=== PATIENT | male | born 1975 | race Caucasian/White ===

== ENCOUNTER 2018-03-24 17:15 | Emergency (ER) | payer MEDICAID, OTHER ==
[~2018-03-24] VITALS: Ht 180.3 cm; Wt 111.1 kg
--- NOTE | 2018-03-24 17:15 | NUR ---
Patient is alert, requesting for juice and sandwich immediately from the ER staff, respiration is easy, poor hygiene noted with strong body scent/odor, calm & cooperative@the moment, pending MD evaluation
--- NOTE | 2018-03-24 17:27 | NUR ---
[employer] officers x2 are at bedside.
[2018-03-24 17:34] LABS: BASOPHILS # (AUTO) 0.1 K/uL (0.0-8.0); BASOPHILS % (AUTO) 0.6 % (0.0-2.0); EOSINOPHILS # (AUTO) 0.3 K/uL (0.0-0.7); EOSINOPHILS % (AUTO) 2.5 % (0.0-7.0); HEMATOCRIT 40.5 % (36.7-47.1); HEMOGLOBIN 13.7 g/dL (12.5-16.3); LYMPHOCYTES # (AUTO) 1.8 K/uL (20.0-40.0); LYMPHOCYTES % (AUTO) 17.9 % (20.5-51.5); MEAN CORPUSCULAR HEMOGLOBIN 30.6 uug (23.8-33.4); MEAN CORPUSCULAR HGB CONC 34 g/dL (32.5-36.3); MEAN CORPUSCULAR VOLUME 90.7 fL (73.0-96.2); MONOCYTES # (AUTO) 0.8 K/uL (2.0-10.0); MONOCYTES % (AUTO) 7.4 % (0.0-11.0); NEUTROPHILS # (AUTO) 7.3 K/uL (1.8-8.9); NEUTROPHILS % (AUTO) 71.6 % (38.5-71.5); PLATELET COUNT (AUTO) 163 K/uL (152-348); RED BLOOD CELL COUNT(AUTO) 4.47 MIL/uL (4.06-5.63); WHITE BLOOD COUNT (AUTO) 10.2 K/uL (3.6-10.2)
[2018-03-24 17:47] LABS: CARBON DIOXIDE 27 mmol/L (21-32); CHLORIDE 105 mmol/L (98-107); CREATININE 0.8 mg/dL (0.6-1.3); GLUCOSE 104 mg/dL (74-106); POTASSIUM 3.5 mmol/L (3.5-5.1); UREA NITROGEN, BLOOD 11 mg/dL (7-18)
--- NOTE | 2018-03-24 17:47 | NUR ---
Patient is resting comfortably on gurney with eyes closed, still for urine sample. Patient was reminded to give urine sample. 'I don't feel like going." per patient's verbalization.
[2018-03-24 17:53] LABS: ALANINE AMINOTRANSFERASE 21 U/L (16-63); ALKALINE PHOSPHATASE 56 U/L (50-136); ASPARTATE AMINOTRANSFERASE 18 U/L (15-37); BILIRUBIN,DIRECT 0.1 mg/dL (0.0-0.2); BILIRUBIN,TOTAL 0.4 mg/dL (0.2-1.0)
[2018-03-24 18:00] LABS: ETHANOL < 3 MG/DL (0-0)
--- NOTE | 2018-03-24 19:04 | NUR ---
RECEIVED SHIFT REPORT FROM MIGUEL KELLEY. RECEIVED PT SLEEPING IN BED. 1:1 SITTER (FIORELLA MCDANIELS LVN) AT BEDSIDE FOR SI PRECAUTION.
--- NOTE | 2018-03-24 20:00 | NUR ---
PT REMAINS IN BED, SLEEPING. PT STILL REFUSING TO PROVIDE URINE SAMPLE, REMAINS UNCOOPERATIVE.
--- NOTE | 2018-03-24 20:08 | NUR ---
ODILON SWIFT AT BEDSIDE FOR CRISIS EVALUATION.
--- NOTE | 2018-03-24 20:16 | NUR ---
PT REFUSING V/S CHECK AT THIS TIME. PT REMAINS IN BED, DOES NOT APPEAR TO BE IN ANY APPARENT DISTRESS.
[2018-03-24] MEDS ORDERED: IV NORMAL SALINE 1000 ML BAG IV ONE (22:00)
[2018-03-24 22:12] LABS: *AMPHETAMINE, URINE NEGATIVE (NEGATIVE); *BARBITURATE, URINE NEGATIVE (NEGATIVE); *CANNABINOID, URINE NEGATIVE (NEGATIVE); *COCCAINE, URINE NEGATIVE (NEGATIVE); *OPIATE, URINE NEGATIVE (NEGATIVE); *PHENCYCLIDINE SCREEN,URINE NEGATIVE (NEGATIVE)
--- NOTE | 2018-03-25 00:10 | NUR ---
SPOKE W/ JAROD FROM [facility] INTAKE RE PT'S ADMISSION. ALL NECESSARY DOCUMENTS HAVE BEEN FAXED OVER. AWAITING TO HEAR BACK.
--- NOTE | 2018-03-25 00:10 | NUR ---
PT STILL REFUSING V/S CHECK. PT DOES NOT APPEAR TO BE IN ANY APPARENT DISTRESS AT THIS TIME.
[2018-03-25 01:36] LABS: *BILIRUBIN,URIN NEGATIVE (NEGATIVE); *BLOOD, URINE NEGATIVE (NEGATIVE); *CLARITY,URINE CLEAR (CLEAR); *COLOR,URINE YELLOW (YELLOW); *KETONES,URINE NEGATIVE (NEGATIVE); *PROTEIN,URINE NEGATIVE (NEGATIVE); LEUKOCYTE ESTERASE ,URINE NEGATIVE (NEGATIVE); NITRITE, URINE NEGATIVE (NEGATIVE); PH,URINE 6.5 (5.0-8.0); UGLUCOSE NEGATIVE (NEGATIVE)
[2018-03-25 01:59] LABS: BACTERIA,URINE NONE SEEN /HPF (NONE SEEN); MUCUS,URINE FEW /LPF (0-FEW); RBC,URINE 0-3 /HPF (0-3); SQUAMOUS EPITHELIAL CELL,UR FEW /HPF (NONE SEEN); WBC,URINE 0-3 /HPF (0-3)
--- NOTE | 2018-03-25 02:42 | NUR ---
Yuri Tabares from [facility] called to inform that Patient will be accepted. Accepting MD is DR Easton. Called for report # Ext [phone]
--- NOTE | 2018-03-25 02:50 | NUR ---
Called [place] to transport patient to [facility]. ETA 30mins. Trip # [id number]
--- NOTE | 2018-03-25 02:57 | NUR ---
GAVE ADMITTING REPORT TO LINDSAY MONTA[place], AT [facility].
--- NOTE | 2018-03-25 03:54 | NUR ---
PT WILL BE TRANSFERRED TO [facility] BY EMT'S FROM [id number].
--- NOTE | 2018-03-25 04:04 | NUR ---
Patient Tranfers to outside Facility Physician: DR. [email or web address] Location: [facility].
== END 2018-03-25 04:08 | disposition short-term general hospital (02) ==
LOC: ER 17:18
DX: R45.851 Suicidal ideations (principal); F17.290 Nicotine dependence, other tobacco product, uncomplicated; F20.9 Schizophrenia, unspecified
CPT/HCPCS: 36415; 80048; 80076; 80307; 81001; 85025; 99285; 99406; G0480; A4663